=== PATIENT | male | born 1935 | race Caucasian/White ===

== ENCOUNTER → 2018-11-03 | Outpatient (CLI) | payer MEDICARE, OTHER ==
--- NOTE | 2018-11-03 17:43 | RAD ---
PQRS Compliance Statement: One or more of the following individualized dose reduction techniques were utilized for this examination: 1. Automated exposure control 2. Adjustment of the mA and/or kV according to patient size 3. Use of iterative reconstruction technique CT LUMBAR SPINE WO CONTRAST Clinical Indication: LT lower back pain, sciatica Comparison: CT abdomen and pelvis with contrast, 09/10/2011. TECHNIQUE: Helical CT imaging of the lumbar spine is performed without IV contrast. Findings: There is disc space narrowing and vacuum disc phenomenon of L4/L5 and L5/S1. The other disc spaces are maintained. There is endplate irregularity and spurring throughout the lumbar spine, least involvement at L3/L4. The vertebral body height and alignment are maintained. The sacroiliac joints are symmetric. L1/L2: There is broad-based posterior disc osteophyte complex and mild facet hypertrophy. There is mild to moderate central canal stenosis. Neural foramina are adequate. L2/L3: There is large broad-based posterior disc osteophyte complex and moderate ligamentum flavum redundancy. There is severe central canal stenosis. Mild left and no significant right neural foraminal narrowing. L3/L4: There is broad-based posterior disc osteophyte complex and mild facet hypertrophy and ligamentum flavum redundancy. Prominent posterior epidural fat. Central canal stenosis is moderate. There is mild to moderate bilateral neural foraminal narrowing. L4/L5: There is broad-based posterior disc osteophyte complex, moderate facet hypertrophy and severe ligamentum flavum redundancy. The central canal stenosis is severe. There is moderate bilateral neural foraminal narrowing. L5/S1: Small posterior disc osteophyte complex. The central canal is adequate. Neural foramina are patent. Atherosclerotic and ectatic abdominal aorta. On the last image, there is a central fat density with a partial soft tissue rim in the left pelvis. No correlate is seen on the prior study. Finding could be an epiploic appendage. IMPRESSION: 1. Moderate lumbar spondylosis for patient age. 2. There is severe central canal stenosis of L2/L3 and L4/L5. Electronically signed by: Jose Mccauley MD (11/03/2018 5:40 PM) [id number]
== END | disposition home or self-care (01) ==
LOC: CT 11:30
PROVIDERS: ATTEND Family Medicine
DX: M47.816 Spondylosis without myelopathy or radiculopathy, lumbar region (principal); M48.061 Spinal stenosis, lumbar region without neurogenic claudication; M25.78 Osteophyte, vertebrae; I70.0 Atherosclerosis of aorta; I77.811 Abdominal aortic ectasia
CPT/HCPCS: 72131

== ENCOUNTER → 2018-12-12 | Outpatient (CLI) | payer MEDICARE, OTHER ==
[~2018-12-12] MED LIST: 0.9 % SODIUM CHLORIDE 10 ML VIAL ONE; IOHEXOL 300 MG/ML 50 ML VIAL. ONE; LIDOCAINE 1% PF 30 ML VIAL. ONE; methylPREDNISolone ACETATE 80 MG/ML VIAL. ONE
== END | disposition home or self-care (01) ==
LOC: SURG 13:57
PROVIDERS: ATTEND Anesthesiology Pain Medicine
DX: M51.16 Intervertebral disc disorders with radiculopathy, lumbar region (principal); M25.562 Pain in left knee; I10 Essential (primary) hypertension; E03.9 Hypothyroidism, unspecified; H54.7 Unspecified visual loss; Z96.652 Presence of left artificial knee joint; Z79.899 Other long term (current) drug therapy
CPT/HCPCS: 62323; J1040; J2001; Q9967

== ENCOUNTER → 2019-01-07 | Outpatient (CLI) | payer MEDICARE, OTHER ==
--- NOTE | 2019-01-07 14:52 | RAD ---
Examination: Ultrasound kidneys History history of chronic kidney disease, stage III COMPARISON: None available FINDINGS: The right kidney measures 10.3 x 5.1 x 5.9 cm. The left kidney measures 10.9 x 5.9 x 6.8 cm. The urinary bladder is not identified. Bilateral ureteral jets identified. No evidence of hydronephrosis. IMPRESSION: 1. Unremarkable visualized exam. Electronically signed by: Paresh Mustafa MD (01/07/2019 2:49 PM) [id number]
== END | disposition home or self-care (01) ==
LOC: US 09:41
PROVIDERS: ATTEND Internal Medicine Nephrology
DX: N18.3 Chronic kidney disease, stage 3 (moderate) (principal)
CPT/HCPCS: 76770

== ENCOUNTER → 2020-12-07 | Outpatient (CLI) | payer MEDICARE, OTHER ==
--- NOTE | 2020-12-07 10:31 | RAD ---
EXAM: Arriola scale and color Doppler renal artery sonogram. HISTORY: Hypertension. TECHNIQUE: Arriola scale and color Doppler sonographic imaging of the kidneys and renal arteries with sp ectral analysis was performed. COMPARISON: None. FINDINGS: The right kidney measures 8.6 cm [id number] and the left kidney measures 9.4 cm pole-to-p ole. There is bilateral renal cortical thinning. There are normal peak systolic velocities within the renal arteries and normal renal artery to aorta velocity ratios. The renal veins and inferior vena c diaz are patent. IMPRESSION: 1. No Doppler evidence of greater than 60 percent stenosis involving the renal arteries. 2. Mild right renal atrophy and bilateral renal cortical thinning. Electronically signed by: Leonela Perez MD (12/07/2020 10:28 AM) [id number]
== END ==
LOC: US 09:48
PROVIDERS: ATTEND Nurse Practitioner Adult Health
DX: N26.1 Atrophy of kidney (terminal) (principal); I10 Essential (primary) hypertension
CPT/HCPCS: 76770

== ENCOUNTER 2021-08-02 09:40 | Emergency (ER) | payer MEDICARE, OTHER ==
[~2021-08-02] VITALS: Ht 170.2 cm; Wt 71.8 kg
[2021-08-02] MEDS ORDERED: IV NORMAL SALINE 500ML 500 ML IV ONE (11:00)
--- NOTE | 2021-08-02 11:14 | PHYS DOC ---
Past History Past Medical History: CAD, High Cholesterol, Hypertension, Hypothyroid, Renal Disease Additional Past Medical Histor: hemodialysis Past Surgical History: Angioplasty, Other Additional Past Surgical Histo: cardic stents; dialysis graft; cataracts Smoking: Non-smoker Alcohol Use: None Drug Use: None General Adult EDM: Chief Complaint: DIZZY/LIGHT HEADED HPI: HPI: Patient is an 86-year-old male that presents today after feeling dizzy. Patient states that starting on Saturday after dialysis he started feeling dizzy and not like himself. Patient states that was the first day that they had used his left upper arm dialysis graft, and he states that since that time he has not felt well. He has the sensation the room is spinning and that when he stands up he is really wobbly. Patient states that he has been on hemodialysis since February 2021 he has been receiving dialysis through a tunneled line in his right upper chest wall and he states that after those treatments he feels great because he drives there and drives home. But starting on Saturday after his treatment there he felt dizzy and not like himself. He said he woke up this morning and he was very dizzy he called his primary care physician and they advised him to go to the emergency department for further evaluation. He does receive hemodialysis Saturday and he did not go to his treatment today. Patient denies chest pain or shortness of air or fever or cough. Review of Systems: Review of Systems: Constitutional: Denies fever or chills Eyes: Denies change in visual acuity HENT: Denies nasal congestion or sore throat Respiratory: Denies cough or shortness of breath Cardiovascular: Denies chest pain or edema GI: Denies abdominal pain, nausea, vomiting, bloody stools or diarrhea : Denies dysuria Musculoskeletal: Denies back pain or joint pain Integument: Denies rash Neurologic: Dizziness Endocrine: Denies polyuria or polydipsia Lymphatic: Denies swollen glands Psychiatric: Denies depression or anxiety Current Medications: Current Meds: Home medications Carvedilol 6.25 mg twice daily Crestor 40 mg at bedtime Ranexa 500mg twice daily Levothyroxine 75 mcg daily Zetia 10 mg daily 81 mg aspirin daily Fish oil 1200 mg twice daily B12 1 tablet daily 1000 mg Co-Q10 100 mg daily [facility] with Lutein 1 tablet daily Multivitamin 1 tablet daily Glucosamine 1 tablet daily Current Medications Medications (Trade) Dose Ordered Sig/Norm Start Time Stop Time Status Last Admin Dose Admin Sodium Chloride 500 ml @ 250 mls/hr 1X ONCE 08/02/21 11:00 08/02/21 12:59 UNV Allergies: Allergies: Allergies Coded Allergies Type Severity Reaction Last Updated Verified No Known Drug Allergies 08/02/21 No Physical Exam: PE: Constitutional: Well developed, well nourished, no acute distress, non-toxic appearance. [] HENT: Normocephalic, atraumatic, bilateral external ears normal, oropharynx moist, no oral exudates, nose normal. [] Eyes: PERRLA, EOMI, conjunctiva normal, no discharge. [] Neck: Normal range of motion, no tenderness, supple, no stridor. [] Cardiovascular:Heart rate regular rhythm, no murmur [] Lungs & Thorax: Bilateral breath sounds clear to auscultation [] Abdomen: Bowel sounds normal, soft, no tenderness, no masses, no pulsatile masses. [] Skin: Warm, dry, no erythema, no rash. [] Back: No tenderness, no CVA tenderness. [] Extremities: No tenderness, no cyanosis, no clubbing, ROM intact, no edema. [] Neurologic: Alert and oriented X 3, normal motor function, normal sensory function, no focal deficits noted. [] Psychologic: Affect normal, judgement normal, mood normal. [] Current Patient Data: Labs: Laboratory Tests Test 08/02/21 10:38 08/02/21 10:55 Influenza Type A (Rapid) Negative Influenza Type B (Rapid) Negative SARS-CoV-2 Antigen (Rapid) Negative White Blood Count 10.5 x10^3/uL Red Blood Count 2.81 x10^6/uL Hemoglobin 10.3 g/dL Hematocrit 30.1 % Mean Corpuscular Volume 107 fL Mean Corpuscular Hemoglobin 37 pg Mean Corpuscular Hemoglobin Concent 34 g/dL Red Cell Distribution Width 13.5 % Platelet Count 274 x10^3/uL Neutrophils (%) (Auto) 76 % Lymphocytes (%) (Auto) 14 % Monocytes (%) (Auto) 9 % Eosinophils (%) (Auto) 1 % Basophils (%) (Auto) 0 % Neutrophils # (Auto) 8.0 x10^3uL Lymphocytes # (Auto) 1.5 x10^3/uL Monocytes # (Auto) 0.9 x10^3/uL Eosinophils # (Auto) 0.1 x10^3/uL Basophils # (Auto) 0.0 x10^3/uL Prothrombin Time 10.1 SEC Prothromb Time International Ratio 1.0 Activated Partial Thromboplast Time 23 SEC Sodium Level 141 mmol/L Potassium Level 3.2 mmol/L Chloride Level 106 mmol/L Carbon Dioxide Level 24 mmol/L Anion Gap 11 Blood Urea Nitrogen 34 mg/dL Creatinine 4.5 mg/dL Estimated GFR (Cockcroft-Gault) 12.5 BUN/Creatinine Ratio 8 Glucose Level 122 mg/dL Calcium Level 7.8 mg/dL Magnesium Level 2.4 mg/dL Total Bilirubin 0.2 mg/dL Aspartate Amino Transf (AST/SGOT) 25 U/L Alanine Aminotransferase (ALT/SGPT) 25 U/L Alkaline Phosphatase 49 U/L Troponin I High Sensitivity 67 ng/L [id number] Natriuretic Peptide 2620 pg/mL Total Protein 4.7 g/dL Albumin 1.3 g/dL Albumin/Globulin Ratio 0.4 Current Medications Medications (Trade) Dose Ordered Sig/Norm Route PRN Reason Start Time Stop Time Status Last Admin Dose Admin Sodium Chloride 500 ml @ 250 mls/hr 1X ONCE IV 08/02/21 11:00 08/02/21 12:59 DC 08/02/21 11:24 Vital Signs: Vital Signs Date Time Temp Pulse Resp B/P (MAP) Pulse Ox O2 Delivery O2 Flow Rate FiO2 08/02/21 19:48 85 13 127/56 (79) 99 Room Air 08/02/21 18:48 83 17 123/51 (75) 99 Room Air 08/02/21 17:48 92 14 119/56 (77) 99 Room Air 08/02/21 16:48 85 13 121/54 (76) 99 Room Air 08/02/21 16:18 86 16 118/54 (75) 99 Room Air 08/02/21 15:48 85 15 116/52 (73) 99 Room Air 08/02/21 15:18 84 16 118/50 (72) 96 Room Air 08/02/21 14:48 82 15 122/52 (75) 96 Room Air 08/02/21 14:18 85 17 132/58 (82) 100 Room Air 08/02/21 13:48 88 15 140/54 (82) 98 Room Air 08/02/21 13:18 81 13 124/60 (81) 95 Room Air 08/02/21 12:48 81 14 134/59 (84) 95 Room Air 08/02/21 12:27 81 15 140/59 (86) 95 Room Air 08/02/21 11:48 80 15 134/59 (84) 96 Room Air 08/02/21 11:14 81 20 138/65 (89) 98 Room Air 08/02/21 10:48 83 16 138/65 (89) 100 Room Air 08/02/21 10:19 83 18 127/43 (71) 93 Room Air 08/02/21 09:56 97.6 83 22 134/63 (86) 100 Room Air Vital Signs Date Time Temp Pulse Resp B/P (MAP) Pulse Ox O2 Delivery O2 Flow Rate FiO2 08/02/21 09:56 97.6 83 22 134/63 (86) 100 Room Air EKG: EKG: EKG done at [address] Graham at 1017 shows sinus rhythm with a rate of 81 no STEMI AK interval 144 ms with a QTC of 453 ms [] Radiology/Procedures: Radiology/Procedures: REASON: dizziness PROCEDURE: CT HEAD WO CONTRAST Exam Date: 08/02/2021 10:[address] HEAD/BRAIN WO Indication: Reason: dizziness / Spl. Instructions: / History: . TECHNIQUE: Head CT was performed without intravenous contrast. One or more of the following dose reduction techniques were utilized: *Automated exposure control (AEC) *Adjustment of mA and/or kV according to patient size *Use of iterative reconstruction technique *CT scan done according to ALARA, or ALARA/IMAGE GENTLY FINDINGS: The ventricles and sulci are prominent consistent with cerebral volume loss. There is no evidence of acute intracranial hemorrhage, extra-axial collection, mass effect, midline shift, or acute territorial infarct. No lesion of the skull base or the calvarium is seen. The visualized paranasal sinuses, mastoid air cells and orbits are normal in appearance. IMPRESSION: No evidence for acute intracranial abnormality. Volume loss and microvascular disease. Electronically signed by: Ye Myers MD (08/02/2021 11:42 AM) [id number] REASON: chest pain PROCEDURE: CHEST AP ONLY XR CHEST 1V History: Reason: chest pain / Spl. Instructions: / History: Comparison: February 10, 2021 Findings: Mild patchy right midlung opacity. No pleural effusion. No pneumothorax. Right IJ central line with tip projecting over the cavoatrial junction. Normal heart size. Impression: 1. Mild patchy right midlung opacity, may represent atelectasis or developing consolidation. Electronically signed by: Sherif Henry DO (08/02/2021 12:13 PM) [id number] [] Heart Score: C/O Chest Pain: N/A Risk Factors: Risk Factors: DM, Current or recent (<one month) smoker, HTN, HLP, family history of CAD, obesity. Risk Scores: Score 0 - 3: 2.5% MACE over next 6 weeks - Discharge Home Score 4 - 6: 20.3% MACE over next 6 weeks - Admit for Clinical Observation Score 7 - 10: 72.7% MACE over next 6 weeks - Early Invasive Strategies Course & Med Decision Making: Course & Med Decision Making Pertinent Labs and Imaging studies reviewed. (See chart for details) 1250: CALLED THE [facility] FOR TRANSFER. 1330 patient updated that we are calling around to the facilities within the [facility] for transfer. [address] Montoya the hospitalist at [facility] and he is agreed to take the patient if transferred to [facility] if a bed is available, also spoke to Dr. Samuel with neurology at [facility] and she agreed to see the patient in consultation if transfer is available. 1630: Were contacted by [facility] patient will be getting a bed at [facility] later on today. Russel Disclaimer: Russel Disclaimer: This electronic medical record was generated, in whole or in part, using a voice recognition dictation system. Departure Departure: Impression: Primary Impression: Dizziness of unknown cause Disposition: 02 SHORT TERM HOSPITAL Condition: STABLE Referrals: NAHUM REYES MD (PCP) REBECCA ALVAREZ APRN Aug 02, 2021 11:14
[2021-08-02 11:21] LABS: BASO % 0 % (0-3); EOS # 0.1 x10^3/uL (0.0-0.7); EOS % 1 % (0-3); HEMATOCRIT 30.1 % (39.0-53.0); HEMOGLOBIN 10.3 g/dL (13.0-17.5); LYMPH # 1.5 x10^3/uL (1.0-4.8); LYMPH % 14 % (24-48); MEAN CORPUSCULAR HEMOGLOBIN 37 pg (25-35); MEAN CORPUSCULAR HGB CONC 34 g/dL (31-37); MEAN CORPUSCULAR VOLUME 107 fL (79-100); MONO # 0.9 x10^3/uL (0.0-1.1); MONO % 9 % (0-9); NEUT % 76 % (31-73); PLATELET COUNT 274 x10^3/uL (140-400); RED BLOOD COUNT 2.81 x10^6/uL (4.30-5.70); RED CELL DISTRIBUTION WIDTH 13.5 % (11.5-14.5); WHITE BLOOD COUNT 10.5 x10^3/uL (4.0-11.0)
[2021-08-02 11:31] LABS: CALCIUM 7.8 mg/dL (8.5-10.1); CREATININE 4.5 mg/dL (0.7-1.3); GFR 12.5; POTASSIUM 3.2 mmol/L (3.5-5.1)
[2021-08-02 11:37] LABS: ALBUMIN 1.3 g/dL (3.4-5.0); ALBUMIN/GLOBULIN RATIO 0.4 (1.0-1.7); TOTAL BILIRUBIN 0.2 mg/dL (0.2-1.0); TOTAL PROTEIN 4.7 g/dL (6.4-8.2)
--- NOTE | 2021-08-02 11:45 | RAD ---
Exam Date: 08/02/2021 10:[address] HEAD/BRAIN WO Indication: Reason: dizziness / Spl. Instructions: / History: . TECHNIQUE: Head CT was performed without intravenous contrast. One or more of the following dose re duction techniques were utilized: *Automated exposure control (AEC) *Adjustment of mA and/or kV according to patient size *Use of iterative reconstruction technique *CT scan done according to ALARA, or ALARA/IMAGE GENTLY FINDINGS: The ventricles and sulci are prominent consistent with cerebral volume loss. There is no evidence o f acute intracranial hemorrhage, extra-axial collection, mass effect, midline shift, or acute territo rial infarct. No lesion of the skull base or the calvarium is seen. The visualized paranasal sinuses, mastoid air cells and orbits are normal in appearance. IMPRESSION: No evidence for acute intracranial abnormality. Volume loss and microvascular disease. Electronically signed by: Ye Myers MD (08/02/2021 11:42 AM) [id number]
--- NOTE | 2021-08-02 12:16 | RAD ---
XR CHEST 1V History: Reason: chest pain / Spl. Instructions: / History: Comparison: February 10, 2021 Findings: Mild patchy right midlung opacity. No pleural effusion. No pneumothorax. Right IJ central line with t ip projecting over the cavoatrial junction. Normal heart size. Impression: 1. Mild patchy right midlung opacity, may represent atelectasis or developing consolidation. Electronically signed by: Sherif Henry DO (08/02/2021 12:13 PM) [id number]
--- NOTE | 2021-08-02 12:32 | EKG ---
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
[2021-08-02 13:15] LABS: INFLUENZA A PATIENT NEGATIVE (NEGATIVE); INFLUENZA B PATIENT NEGATIVE (NEGATIVE)
[2021-08-02 14:02] LABS: BILIRUBIN,URINE NEG (NEG); CLARITY,URINE CLEAR; COLOR,URINE YELLOW; GLUCOSE,URINE >=1000 mg/dL (NEG); NITRITE,URINE NEG (NEG); UROBILINOGEN,URINE 0.2 mg/dL (0.2 mg/dL)
[2021-08-02 14:10] LABS: BACTERIA,URINE 0 /HPF (0-FEW); HYALINE CASTS, URINE OCC /HPF; SQUAMOUS EPITHELIAL CELL,UR OCC /LPF
[2021-08-02 19:48] VITALS: BP 127/56
== END 2021-08-02 20:40 | disposition short-term general hospital (02) ==
LOC: ER 09:40
DX: R42 Dizziness and giddiness (principal); R07.9 Chest pain, unspecified; E78.5 Hyperlipidemia, unspecified; I10 Essential (primary) hypertension; Z20.822 Contact with and (suspected) exposure to COVID-19
CPT/HCPCS: 36415; 70450; 71045; 80053; 81001; 83735; 83880; 84484; 85025; 85610; 85730; 93005; 96360; 99285; C9803; J7040; U0003